=== PATIENT | male | born 1960 | race African-American/Black ===

== ENCOUNTER 2022-02-01 17:37 | Emergency (ER) | payer MEDICAID ==
[~2022-02-01] VITALS: Ht 177.8 cm; Wt 98.0 kg
[2022-02-01 17:50] VITALS: BP 136/79
[2022-02-01] MEDS ORDERED: CYCL10TA21 MT (19:14)
[2022-02-01] MEDS ORDERED: NAPR-681 MT (19:14)
== END 2022-02-01 19:19 | disposition home or self-care (01) ==
LOC: ER 17:37
DX: S39.012A Strain of muscle, fascia and tendon of lower back, initial encounter (principal); E78.00 Pure hypercholesterolemia, unspecified; Z59.01 Sheltered homelessness; X58.XXXA Exposure to other specified factors, initial encounter; Y93.89 Activity, other specified; Y92.89 Other specified places as the place of occurrence of the external cause
CPT/HCPCS: 99283

== ENCOUNTER 2022-06-06 09:40 | Emergency (ER) | payer MEDICAID ==
[~2022-06-06] VITALS: Ht 177.8 cm; Wt 98.0 kg
[~2022-06-06 09:40] MED LIST: CYCL10TA21 MT; NAPR-681 MT
[2022-06-06 13:30] VITALS: BP 122/75
[2022-06-06] MEDS ORDERED: IBUPROFEN 600MG TABLET PO ONE (14:30)
== END 2022-06-06 16:34 | disposition home or self-care (01) ==
LOC: ER 09:40
DX: R05.9 Cough, unspecified (principal); E78.00 Pure hypercholesterolemia, unspecified; Z20.822 Contact with and (suspected) exposure to COVID-19
CPT/HCPCS: 71045; 87426; 87804; 99284; C9803